=== PATIENT | female | born 1985 | race African-American/Black ===

== ENCOUNTER 2017-04-22 11:28 | Emergency (ER) | payer MEDICAID ==
[~2017-04-22] VITALS: Ht 160 cm; Wt 114.0 kg
[2017-04-22 11:43] VITALS: BP 154/99
[2017-04-22] MEDS ORDERED: PNV1TABL76 PO (11:46)
[2017-04-22] MEDS ORDERED: ACET-2178 PO (11:46)
== END 2017-04-22 13:53 | disposition home or self-care (01) ==
LOC: ER 12:37
DX: O99.89 Other specified diseases and conditions complicating pregnancy, childbirth and the puerperium (principal); K08.89 Other specified disorders of teeth and supporting structures; Z3A.12 12 weeks gestation of pregnancy
CPT/HCPCS: 99283